=== PATIENT | male | born 1960 | race Caucasian/White ===

== ENCOUNTER 2022-01-14 07:22 | Day surgery (SDC) | payer BC ==
[2022-01-12 15:00] VITALS: BMI 29.0
[2022-01-14] MEDS ORDERED: PROPOFOL 20 ML ONE ×4 (07:48)
[2022-01-14] MEDS ORDERED: LIDOCAINE HCL/PF 2% SDV 5ML VIAL ONE (07:48)
[2022-01-14 09:06] VITALS: BP 138/80; PULSE 72; TEMP 97.9
== END 2022-01-14 09:06 | disposition home or self-care (01) ==
LOC: FASU-ENDO 07:22
PROVIDERS: ATTEND Internal Medicine Gastroenterology
PROC: 0DBN8ZX Excision of Sigmoid Colon, Via Natural or Artificial Opening Endoscopic, Diagnostic (ICD-10-PCS; principal; 2022-01-14 08:13)
DX: Z12.11 Encounter for screening for malignant neoplasm of colon (principal); Z83.71 Family history of colonic polyps; D12.5 Benign neoplasm of sigmoid colon; K64.0 First degree hemorrhoids
CPT/HCPCS: 88305-TC